=== PATIENT | female | born 1990 | race Caucasian/White ===

== ENCOUNTER 2019-02-13 13:07 | Emergency (ER) | payer BC ==
--- NOTE | 2019-02-13 13:21 | EDM.PDOC ---
ED HPI GENERAL MEDICAL PROBLEM - General Chief Complaint: Abdominal Pain Stated Complaint: ABDOMINAL PAIN Time Seen by Provider: 02/13/19 13:15 Source of Information: Reports: Patient, RN Notes Reviewed History Limitations: Reports: No Limitations - History of Present Illness INITIAL COMMENTS - FREE TEXT/NARRATIVE: Patient is a 28-year-old female who presents to the ED for evaluation of sudden onset abdominal pain. She states this started around 1 1/2 hours ago. This started in her epigastrium and ended up settling into her lower abdomen, with most of her tenderness located on the right lower quadrant. She states that she had a small BM directly before the pain started. She notes that she has had a previous cholecystectomy but does not think she has had her appendix. She states that she thinks that she may have some frequency in urination. She denies any history of diverticulitis, ovarian cysts, but has felt somewhat constipated for the past couple days. She states that the pain is present constantly and does not come in go in waves. She states that it is painful with movement and rates this at an 8 out of 10, when she is resting the pain is at a 4 out of 10. She states that she was slightly nauseated with this but has not had any been vomiting or diarrhea with this nor has she had any chest pain or shortness of breath. She does not think that she could be as she has an IUD in place, and she denies any history of hernias, or other chronic bowel problems. The patient states that due to the IUD placement, she does not get a normal menstrual cycle or a period monthly. She states that she has some mild vaginal discharge, but thought this was due to starting a newer stressful job. She states that she is monogamous with her , and he hasn't made her aware of any symptoms that he has been having. Abdominal Pain Score (Numeric/FACES): 5 - Related Data Allergies Allergy/AdvReac Type Severity Reaction Status Date / Time Penicillins Allergy Cannot Verified 02/13/19 13:10 Remember Home Meds: Home Meds Acetaminophen/HYDROcodone [Blackstock 325-5 MG] 1 tab PO Q6H PRN #12 tablet 02/13/19 [Rx] Doxycycline [Vibramycin] 100 mg PO BID #28 tab 02/13/19 [Rx] Past Medical History Dermatologic History: Reports: Eczema - Past Surgical History GI Surgical History: Reports: Cholecystectomy Social & Family History - Tobacco Use Smoking Status *Q: Never Smoker - Recreational Drug Use Recreational Drug Use: No ED ROS GENERAL - Review of Systems Review Of Systems: See Below Constitutional: Denies: Fever, Chills, Decreased Appetite HEENT: Reports: No Symptoms Respiratory: Reports: No Symptoms Cardiovascular: Reports: No Symptoms Endocrine: Reports: No Symptoms GI/Abdominal: Reports: Abdominal Pain (Lower abdominal), Constipation (slight), Nausea. Denies: Diarrhea, Vomiting : Reports: Frequency. Denies: Discharge, Dysuria, Urgency Musculoskeletal: Reports: No Symptoms Skin: Reports: No Symptoms Neurological: Reports: No Symptoms Psychiatric: Reports: No Symptoms Hematologic/Lymphatic: Reports: No Symptoms Immunologic: Reports: No Symptoms ED EXAM, GI/ABD - Physical Exam Exam: See Below Exam Limited By: No Limitations General Appearance: Alert, WD/WN, No Apparent Distress Eyes: Bilateral: Normal Appearance Ears: Normal External Exam Nose: Normal Inspection Throat/Mouth: Normal Inspection, Normal Lips, Normal Teeth, Normal Oropharynx, Normal Voice, No Airway Compromise Head: Atraumatic, Normocephalic Neck: Normal Inspection Respiratory/Chest: No Respiratory Distress, Lungs Clear, Normal Breath Sounds, No Accessory Muscle Use, Chest Non-Tender Cardiovascular: Normal Peripheral Pulses, Regular Rate, Rhythm, No Murmur GI/Abdominal Exam: Normal Bowel Sounds, Soft, No Organomegaly, No Distention, No Mass, Tender (RLQ mainly, but slight tenderness to epigastrium as well.) (Female) Exam: Normal External Exam, Adnexal Tenderness, Cervix Motion Tenderness (IUD is not visualized on exam, however it was visualized in CT and it is present within the uterus.), Vaginal Discharge (whitish discharge in vaginal vault and around cervix. ) Rectal (Female) Exam: No: Bloody Stool Back Exam: Normal Inspection, Full Range of Motion Extremities: Normal Inspection, Normal Range of Motion, Non-Tender, No Pedal Edema, Normal Capillary Refill Neurological: Alert, Oriented, Normal Cognition, Normal Gait, Normal Reflexes, No Motor/Sensory Deficits Psychiatric: Normal Affect, Normal Mood Skin Exam: Warm, Dry, Intact, Normal Color, No Rash Course - Vital Signs Last Recorded V/S: Last Vital Signs Temp 97.7 F 02/13/19 13:10 Pulse 82 02/13/19 13:10 Resp BP 139/95 H 02/13/19 13:10 Pulse Ox 99 02/13/19 13:10 - Orders/Labs/Meds Orders: Active Orders 24 hr Category Date Time Status GC/CHLAMYDIA BY PCR [MOLEC] Stat Lab 02/13/19 16:10 Stop Req Sodium Chloride 0.9% [Normal Saline] 1,000 ml Med 02/13/19 13:30 Ordered IV ASDIRECTED Sodium Chloride 0.9% [Saline Flush] Med 02/13/19 14:59 Active 10 ml FLUSH ONETIME PRN Medication Orders Sodium Chloride (Normal Saline) 1,000 mls @ 500 mls/hr IV ASDIRECTED DIDI Last Admin: 02/13/19 13:48 Dose: 500 mls/hr Sodium Chloride (Saline Flush) 10 ml FLUSH ONETIME PRN PRN Reason: IV FLUSH Last Admin: 02/13/19 15:08 Dose: 10 ml Labs: Laboratory Tests 02/13/19 02/13/19 02/13/19 Range/Units 13:40 13:40 13:47 WBC 21.42 H (3.98-10.04) K/mm3 RBC 5.14 (3.98-5.22) M/mm3 Hgb 13.5 (11.2-15.7) gm/L Hct 42.1 (34.1-44.9) % MCV 81.9 (79.4-94.8) fl MCH 26.3 (25.6-32.2) pg MCHC 32.1 L (32.2-35.5) g/dl RDW Std Deviation 42.1 (36.4-46.3) fL Plt Count 297 (182-369) K/mm3 MPV 10.6 (9.4-12.3) fl Neutrophils % (Manual) 77 H (40-60) % Band Neutrophils % 5 (0-10) % Lymphocytes % (Manual) 12 L (20-40) % Atypical Lymphs % 0 % Monocytes % (Manual) 4 (2-10) % Eosinophils % (Manual) 1 (0.7-5.8) % Basophils % (Manual) 1 (0.1-1.2) Platelet Estimate Adequate RBC Morph Comment Normal Sodium (136-145) mEq/L Potassium (3.5-5.1) mEq/L Chloride (98-107) mEq/L Carbon Dioxide (21-32) mEq/L Anion Gap (5-15) BUN (7-18) mg/dL Creatinine (0.55-1.02) mg/dL Est Cr Clr Drug Dosing mL/min Estimated GFR (MDRD) (>60) mL/min BUN/Creatinine Ratio (14-18) Glucose (74-106) mg/dL Calcium (8.5-10.1) mg/dL Total Bilirubin (0.2-1.0) mg/dL AST (15-37) U/L ALT (14-59) U/L Alkaline Phosphatase (46-116) U/L C-Reactive Protein (<1.0) mg/dL Total Protein (6.4-8.2) g/dl Albumin (3.4-5.0) g/dl Globulin gm/dL Albumin/Globulin Ratio (1-2) Lipase (73-393) U/L Urine Color Yellow (Yellow) Urine Appearance Clear (Clear) Urine pH 6.0 (5.0-8.0) Ur Specific Sharon 1.025 (1.005-1.030) Urine Protein Negative (Negative) Urine Glucose (UA) Negative (Negative) Urine Ketones Trace H (Negative) Urine Occult Blood Negative (Negative) Urine Nitrite Negative (Negative) Urine Bilirubin Negative (Negative) Urine Urobilinogen 0.2 (0.2-1.0) Ur Leukocyte Esterase Negative (Negative) Urine RBC 0-5 (0-5) /hpf Urine WBC 0-5 (0-5) /hpf Ur Epithelial Cells Not Reportable Ur Squamous Epith Cells 5-10 H (0-5) /hpf Urine Bacteria Few (FEW) /hpf Urine Mucus Moderate H (FEW) /hpf Urine HCG, Qual Negative (NEGATIVE) 02/13/19 02/13/19 Range/Units 13:47 13:47 WBC (3.98-10.04) K/mm3 RBC (3.98-5.22) M/mm3 Hgb (11.2-15.7) gm/L Hct (34.1-44.9) % MCV (79.4-94.8) fl MCH (25.6-32.2) pg MCHC (32.2-35.5) g/dl RDW Std Deviation (36.4-46.3) fL Plt Count (182-369) K/mm3 MPV (9.4-12.3) fl Neutrophils % (Manual) (40-60) % Band Neutrophils % (0-10) % Lymphocytes % (Manual) (20-40) % Atypical Lymphs % % Monocytes % (Manual) (2-10) % Eosinophils % (Manual) (0.7-5.8) % Basophils % (Manual) (0.1-1.2) Platelet Estimate RBC Morph Comment Sodium 138 (136-145) mEq/L Potassium 3.8 (3.5-5.1) mEq/L Chloride 104 (98-107) mEq/L Carbon Dioxide 24 (21-32) mEq/L Anion Gap 13.8 (5-15) BUN 15 (7-18) mg/dL Creatinine 1.0 (0.55-1.02) mg/dL Est Cr Clr Drug Dosing 81.45 mL/min Estimated GFR (MDRD) > 60 (>60) mL/min BUN/Creatinine Ratio 15.0 (14-18) Glucose 94 (74-106) mg/dL Calcium 9.1 (8.5-10.1) mg/dL Total Bilirubin 0.3 (0.2-1.0) mg/dL AST 24 (15-37) U/L ALT 43 (14-59) U/L Alkaline Phosphatase 97 (46-116) U/L C-Reactive Protein 2.6 H* (<1.0) mg/dL Total Protein 8.3 H (6.4-8.2) g/dl Albumin 3.9 (3.4-5.0) g/dl Globulin 4.4 gm/dL Albumin/Globulin Ratio 0.9 L (1-2) Lipase 207 (73-393) U/L Urine Color (Yellow) Urine Appearance (Clear) Urine pH (5.0-8.0) Ur Specific Sharon (1.005-1.030) Urine Protein (Negative) Urine Glucose (UA) (Negative) Urine Ketones (Negative) Urine Occult Blood (Negative) Urine Nitrite (Negative) Urine Bilirubin (Negative) Urine Urobilinogen (0.2-1.0) Ur Leukocyte Esterase (Negative) Urine RBC (0-5) /hpf Urine WBC (0-5) /hpf Ur Epithelial Cells Ur Squamous Epith Cells (0-5) /hpf Urine Bacteria (FEW) /hpf Urine Mucus (FEW) /hpf Urine HCG, Qual (NEGATIVE) Meds: Medications Generic Name Dose Route Start Last Admin Trade Name Sara PRN Reason Stop Dose Admin Sodium Chloride 1,000 mls @ 500 mls/hr 02/13/19 13:30 02/13/19 13:48 Normal Saline IV 500 mls/hr ASDIRECTED DIDI Administration Sodium Chloride 10 ml 02/13/19 14:59 02/13/19 15:08 Saline Flush FLUSH 10 ml ONETIME PRN Administration IV FLUSH Discontinued Medications Generic Name Dose Route Start Last Admin Trade Name Sara PRN Reason Stop Dose Admin Ceftriaxone Sodium 250 mg/ 0 mg 02/13/19 17:15 02/13/19 17:21 Lidocaine HCl 0.5 ml IM 02/13/19 17:16 250 syringe ONETIME ONE Administration Diatrizoate Meglum/Diatrizoate Sod 120 ml 02/13/19 14:59 02/13/19 15:07 Gastrografin 37% PO 02/13/19 15:00 90 ml ONETIME ONE Administration Hydromorphone HCl 0.5 mg 02/13/19 13:28 02/13/19 13:48 Dilaudid IVPUSH 02/13/19 13:29 0.5 mg ONETIME STA Administration Hydromorphone HCl 0.5 mg 02/13/19 16:17 02/13/19 16:22 Dilaudid IVPUSH 02/13/19 16:18 0.5 mg ONETIME ONE Administration Iopamidol 100 ml 02/13/19 14:59 02/13/19 15:08 Isovue-370 (76%) IV 02/13/19 15:00 100 ml ONETIME ONE Administration Ondansetron HCl 4 mg 02/13/19 13:28 02/13/19 13:47 Zofran IVPUSH 02/13/19 13:29 4 mg ONETIME ONE Administration - Re-Assessments/Exams Free Text/Narrative Re-Assessment/Exam: 02/13/19 13:49 Patient presents to the ED for the evaluation of sudden onset abdominal pain. I did order IV fluids, CBC, CMP, CRP, qualitative hCG, lipase and a UA for further evaluation. I have ordered 0.5 mg Dilaudid for pain relief and 4 mg IV Zofran for nausea relief with an IV bolus of fluids. 02/13/19 16:24 CT has been done and read per radiology, he states that there are no acute findings on the CT study of the abdomen and pelvis however her labs show an elevated white count of 21,000 with 5 bands and 77% neutrophils, there is a bacterial component present. Her urinalysis was clean at this time and she is not . Upon further questioning of the patient she states that she has had some mild vaginal discharge but started a stressful job recently and thought that may be it was due to that. She states that she is monogamous with her and he has not made her aware of any other symptoms that he may be having at this time. A vaginal exam was done with a swab for GC, and a wet prep done for further evaluation of what might be causing her increased white count at this time. This is questionable for PID at this time. Her chandelier sign was positive. 02/13/19 17:08 Dr. Villafuerte was called and asked to take a 2nd look at the patient's CT, and he states that there may be a collapsed follicle or corpus luteum above her uterus that Dr. Pritchard was questioning. Dr. Villafuerte states this is not bothersome. Will treat the patient for PID, will give 250mg IM Rocephin and write her a script for Doxycycline 100mg BID for 14 days. Departure - Departure Time of Disposition: 17:24 Disposition: Home, Self-Care 01 Condition: Fair Clinical Impression: Pelvic inflammatory disease, female - Discharge Information *PRESCRIPTION DRUG MONITORING PROGRAM REVIEWED*: Yes *COPY OF PRESCRIPTION DRUG MONITORING REPORT IN PATIENT JACOB: No Prescriptions: Acetaminophen/HYDROcodone [Blackstock 325-5 MG] 1 tab PO Q6H PRN #12 tablet PRN Reason: Pain Doxycycline [Vibramycin] 100 mg PO BID #28 tab Instructions: Pelvic Inflammatory Disease, [id number] Referrals: PCP,None [Primary Care Provider] - Forms: ED Department Discharge Additional Instructions: You have been evaluated in the ED today for your abdominal pain. This is likely due to pelvic inflammatory disease, there are still lab tests pending you will be made aware of the results as we get them. You will be notified if you need further treatment. You have been given one time dose of Rocephin in the ED today and will be prescribed a course of doxycycline 100 mg twice a day for 14 days. This should cover any of the bacteria that is causing your pain. You have been prescribed hydrocodone's 5/325 for further pain relief please take this every 6 hours as needed for pain relief. Otherwise you may take Tylenol or ibuprofen as needed every 6 hours in an alternating fashion. Please do not exceed 4000 mg Tylenol or 3200 mg ibuprofen in a 24-hour time period. These medications have been electronically prescribed to the [place] pharmacy located in the [employer] store. Recommend that you call and set up with a primary care provider, , any family practice provider can provider services. You may need to have an OB/ RESIDENT ENGINEER follow-up as well to make sure that your infection has resolved. Please return to the ED if her symptoms change or worsen. - My Orders Last 24 Hours: My Active Orders 02/13/19 13:30 Sodium Chloride 0.9% [Normal Saline] 1,000 ml IV ASDIRECTED 02/13/19 14:59 Sodium Chloride 0.9% [Saline Flush] 10 ml FLUSH ONETIME PRN 02/13/19 16:10 GC/CHLAMYDIA BY PCR [MOLEC] Stat - Assessment/Plan Last 24 Hours: My Active Orders 02/13/19 13:30 Sodium Chloride 0.9% [Normal Saline] 1,000 ml IV ASDIRECTED 02/13/19 14:59 Sodium Chloride 0.9% [Saline Flush] 10 ml FLUSH ONETIME PRN 02/13/19 16:10 GC/CHLAMYDIA BY PCR [MOLEC] Stat
[2019-02-13] MEDS ORDERED: Ondansetron 4 MG/2 ML SDV IVPUSH ONE (13:28)
[2019-02-13] MEDS ORDERED: HYDROmorphone 1 MG/ML Syringe IVPUSH STA (13:28)
[2019-02-13] MEDS ORDERED: Sodium Chloride 0.9% 1,000 ML IV SCH (13:30)
[2019-02-13] MEDS ORDERED: Iopamidol 755 Mg/ML 200 ML Bottle IV ONE (14:59)
[2019-02-13] MEDS ORDERED: Diatrizoate Meglumine/Diatrizoate Sodium 37% 120 ML Bottle PO ONE (14:59)
[2019-02-13] MEDS ORDERED: Sodium Chloride 0.9% 10 ML Syringe FLUSH PRN (14:59)
--- NOTE | 2019-02-13 15:30 | CT ---
CT abdomen and pelvis Technique: Multiple axial sections were obtained from above the dome of the diaphragm inferiorly through the pubic symphysis. Intravenous and oral contrast was utilized. Delayed images were also obtained to the bladder. Comparison: No prior abdominal imaging is available. Findings: Small portion of the visualized lung bases are clear. Liver contains no focal abnormality. Spleen appears within normal limits. Adrenal glands show no nodule. Pancreas is within normal limits. Kidneys show symmetric contrast enhancement without hydronephrosis or mass. Surgical clips are seen from prior cholecystectomy. Aorta shows no aneurysm. No retroperitoneal adenopathy is seen. Short appendix is seen which appears normal in size. No inflammatory change is seen within the right lower abdomen. No pelvic mass or adenopathy is seen. IUD is present within the uterus. No free fluid is seen. Delayed images shows contrast within the distal ureters and within the bladder. Bone window settings were reviewed which shows no acute osseous abnormality. 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 Impression: 1. Incidental findings. Nothing acute is seen on CT study of the abdomen and pelvis. Diagnostic code #2
[2019-02-13] MEDS ORDERED: HYDROmorphone 1 MG/ML Syringe IVPUSH ONE (16:17)
[2019-02-13] MEDS ORDERED: cefTRIAXone 250 MG, Lidocaine 1% 0.5 ML IM ONE ×2 (17:15)
[2019-02-13 17:58] LABS: C. TRACHOMATIS BY PCR NOT DETECTED; N. GONORRHOEAE BY PCR NOT DETECTED
== END 2019-02-13 17:41 | disposition home or self-care (01) ==
LOC: JD.ED 13:07
DX: N73.9 Female pelvic inflammatory disease, unspecified (principal); Z88.0 Allergy status to penicillin
CPT/HCPCS: 36415; 74177; 80053; 81001; 81025; 83690; 85007; 85027; 86140; 87210; 87491; 87591; 87808; 96361; 96372; 96374; 96375; 96376; 99284; J0696; J1170; J2001; J2405; J7040; Q9963; Q9967; 99283